=== PATIENT | male | born 1955 | race Caucasian/White ===

== ENCOUNTER 2023-12-31 06:52 | Emergency (ER) | payer BC ==
[~2023-12-31] VITALS: Ht 180.3 cm; Wt 89.9 kg
[~2023-12-31 06:52] MED LIST: ALLOPURINOL100 MG PO; GLIPIZIDE ER10 MG PO; LISINOPRIL40 MG PO
[2023-12-31] MEDS ORDERED: AMLODIPINE BESYL5 MG PO (07:08)
[2023-12-31 08:06] LABS: BASOPHILS 0.1 % (0-2); EOSINOPHILS 0.3 % (0-6); HEMATOCRIT 35.6 % (35.0-50.0); HEMOGLOBIN 12.2 g/dL (12.0-18.0); LYMPHOCYTES 13.8 % (24-44); MCH 35.5 (27-36); MCHC 34.2 g/dl (30-36); MCV 103.8 fl (81-99); NEUTROPHILS 74.8 % (39-80); PLATELET COUNT 93 K/uL (140-440); RBC 3.43 M/ul (4.3-5.7); RDW 14.1 (10.5-15.0)
[2023-12-31 08:16] LABS: INR 1.26 (0.80-1.30); PROTIME 15.4 Sec (11.2-14.2)
[2023-12-31 08:20] LABS: ALBUMIN 2.9 g/dL (3.4-5.0); ALBUMIN/GLOBULIN RATIO 0.64 (1.1-2.4); ANION GAP 13.5 (7-21); BILIRUBIN, TOTAL 1.9 ng/dL (0.2-1.0); BUN/CREATININE RATIO 9.67 (6.0-28.6); CALCIUM 8.6 mg/dL (8.5-10.1); CREATININE, SERUM 0.93 mg/dL (0.70-1.30); POTASSIUM 4.5 mmol/L (3.5-5.1); PROTEIN, TOTAL 7.4 g/dL (6.4-8.2)
[2023-12-31 09:44] VITALS: BP 166/70
== END 2023-12-31 09:46 | disposition home or self-care (01) ==
LOC: ED 06:52
PROVIDERS: Emergency Medicine
DX: S22.080A Wedge compression fracture of T11-T12 vertebra, initial encounter for closed fracture (principal); I10 Essential (primary) hypertension; E11.9 Type 2 diabetes mellitus without complications; X50.0XXA Overexertion from strenuous movement or load, initial encounter; Z79.899 Other long term (current) drug therapy
CPT/HCPCS: 36415; 72070; 72100; 80053; 82140; 85025; 85610; 99283-25; G0480

== ENCOUNTER 2024-08-03 10:26 | Inpatient (IN) | payer BC, MEDICARE ==
[2024-08-03] VITALS (13 sets, daily range): BP systolic 99–154; BP diastolic 50–117
[~2024-08-03] VITALS: Ht 180.3 cm; Wt 87.3 kg
[~2024-08-03 10:26] MED LIST changes: +AMLODIPINE BESYL5 MG PO
[2024-08-03 10:43] LABS: BASOPHILS 2.4 % (0-2); EOSINOPHILS 2.5 % (0-6); HEMATOCRIT 28.9 % (35.0-50.0); LYMPHOCYTES 18.5 % (24-44); MCH 36.9 (27-36); MCHC 34.6 g/dl (30-36); MCV 106.7 fl (81-99); MONOCYTES 11.1 % (0-12); NEUTROPHILS 65.5 % (39-80); PLATELET COUNT 90 K/uL (140-440); RBC 2.71 M/ul (4.3-5.7); RDW 14.9 (10.5-15.0)
[2024-08-03] MEDS ORDERED: SODIUM CHLORIDE 0.9% 1,000 ML IV PRN (10:45)
[2024-08-03 10:48] LABS: PARTIAL THROMBOPLASTIN TIME 34.2 Sec (22.9-41.3)
[2024-08-03 10:49] LABS: INR 1.48 (0.80-1.30); PROTIME 17.1 Sec (11.2-14.2)
[2024-08-03 11:01] LABS: ACETAMINOPHEN 0 ug/mL (10-30); ALBUMIN 2.6 g/dL (3.4-5.0); ALBUMIN/GLOBULIN RATIO 0.63 (1.1-2.4); ALCOHOL, MEDICAL <3 ng/dL (<3); ALKALINE PHOSPHATASE 180 U/L (46-116); ALT (SGPT) 31 U/L (14-59); AST (SGOT) 38 U/L (15-37); BILIRUBIN, TOTAL 1.8 ng/dL (0.2-1.0); BUN/CREATININE RATIO 14.15 (6.0-28.6); CALCIUM 8.4 mg/dL (8.5-10.1); CARBON DIOXIDE 20 mmol/L (21-32); CHLORIDE 111 mmol/L (98-107); CREATININE, SERUM 1.13 mg/dL (0.70-1.30); GLOMERULAR FILTRATION RATE,EST 71 mL/min (>60); PROTEIN, TOTAL 6.7 g/dL (6.4-8.2); TSH, 3RD GENERATION 1.979 uIU/mL (0.358-3.740); UREA NITROGEN 16 mg/dL (7-18)
[2024-08-03 11:02] LABS: SALICYLATE <0.2 mg/dL (2.8-20.0)
[2024-08-03] MEDS ORDERED: LACTULOSE 20 GM/30 ML CUP PO ONE (12:15)
[2024-08-03 12:31] LABS: BILIRUBIN, URINE NEGATIVE (negative); BLOOD/HGB, URINE NEGATIVE (Negative); KETONE, URINE NEGATIVE (Negative); LEUK ESTERASE, URINE NEGATIVE (negative); NITRITE, URINE NEGATIVE (negative)
[2024-08-03 12:45] LABS: AMPHETAMINES, URINE NEGATIVE (NEGATIVE); BARBITURATES, URINE NEGATIVE (NEGATIVE); BENZODIAZEPINE, URINE NEGATIVE (NEGATIVE); BUPRENORPHINE, URINE NEGATIVE (NEGATIVE); CANNABINOID, URINE NEGATIVE (NEGATIVE); COCAINE, URINE NEGATIVE (NEGATIVE); ECSTASY, URINE NEGATIVE (NEGATIVE); FENTANYL, URINE NEGATIVE (NEGATIVE); METHADONE, URINE NEGATIVE (NEGATIVE); OPIATES, URINE NEGATIVE (NEGATIVE); OXYCODONE, URINE NEGATIVE (NEGATIVE); PHENCYCLIDINE, URINE NEGATIVE (NEGATIVE)
[2024-08-03] MEDS ORDERED: ENOXAPARIN SODIUM 40 MG/0.4 ML SYR SUB-Q SCH (13:36)
[2024-08-03] MEDS ORDERED: GLUCAGON,HUMAN RECOMBINANT 1 MG/ML VIAL SUB-Q PRN (13:45)
[2024-08-03] MEDS ORDERED: LACTATED RINGER'S 1,000 ML IV SCH (13:45)
[2024-08-03] MEDS ORDERED: DEXTROSE 5% 1,000 ML IV PRN (13:45)
[2024-08-03] MEDS ORDERED: bisacodyL 10 MG SUPP PR PRN (13:45)
[2024-08-03] MEDS ORDERED: ACETAMINOPHEN 325 MG TAB PO PRN (13:45)
[2024-08-03] MEDS ORDERED: IBLOOD GLUCOSE TEST STRIP 1 EA TEST XX PRN (13:45)
[2024-08-03] MEDS ORDERED: DEXTROSE 50% 50 ML SYR IV PRN ×2 (13:45)
[2024-08-03] MEDS ORDERED: GLIPIZIDE ER5 MG PO (14:06)
--- NOTE | 2024-08-03 14:25 | NUR ---
PT ARRIVES TO UNIT VIA STRETCHER TRANSPORTED BY THIS RN - DAUGHTER AND WITH. PT ORIENTED TO SELF ONLY, PLEASENT AND REDIRECTABLE AT THIS TIME. ADMISSION ASSESSMENT COMPLETE WITH HELP OF HX FROM DAUGHTER. LR BOLUS STARTED. CIWA ASSESMENT COMPLETE, WILL CONTINUE TO MONITOR. BED ALARM ON AND RN AT BEDSIDE.
--- NOTE | 2024-08-03 15:00 | NUR ---
Pt unable to answer questions. Spoke with pts daughter. Pt lives with his . For the past few days he has had some confusion, putting his clothing on inside out. Refusing to go to the hospital. Pt does not use any DME. They have 3 levels in there home and pt mostly usess one floor only. They ave 3 steps into the house. Pt is able to get in and out without problem. 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 They do not have financial issues. Pt drinking 1 1/2 cases of beer daily. Most like last drink was on 08/02. Pt is angry on admission with family. Will see him tomorrow.
--- NOTE | 2024-08-03 15:30 | NUR ---
MD AT BEDSIDE SPEAKING WITH FAMILY AND PT. ALL QUESTIONS ANSWERED AND CURRENT POC DISCUSSED. PT CONTINUES TO NEED REDIRECTION AND VERBAL CUEING TO STAY IN BED. URINAL PROVIDED TO VOID, 450ML OF BILIOUS URINE. RN REMAINS AT BEDSIDE, BED ALARM ON.
[2024-08-03] MEDS ORDERED: LORazepam 2 MG/ML VIAL IV/IM PRN (16:15)
[2024-08-03] MEDS ORDERED: THIAMINE HCL 100 MG,FOLIC ACID 1 MG,MULTIVITAMINS 10 ML in SODIUM CHLORIDE 0.9% 1,000 ML IV ONE (16:15)
[2024-08-03] MEDS ORDERED: LORazepam 1 MG TAB PO PRN (16:15)
[2024-08-03] MEDS ORDERED: GABAPENTIN 300 MG CAP PO SCH (16:38)
--- NOTE | 2024-08-03 16:40 | NUR ---
PRN ATIVAN ADMINSTERED FOR ELEVATED CIWA SCORE - DELAY R/T ORDER AND PHARMACY VERIFICATION. PT RESTING IN BED, REDIRECTABLE AT THIS TIME BUT STILL DEMONSTRATING DISORIENTATION, TREMORS AND RESTLESNESS. VS STABLE.
[2024-08-03] MEDS ORDERED: INSULIN LISPRO 100 UNIT/ML ML SUB-Q SCH (17:00)
[2024-08-03] MEDS ORDERED: IBLOOD GLUCOSE TEST STRIP 1 EA TEST VI SCH (17:00)
--- NOTE | 2024-08-03 17:20 | NUR ---
PT RESTING IN BED QUIETLY WITH EYES CLOSED AFTER PRN ATIVAN DOSE OF 1MG, RR EVEN AND UNLABORED. VS STABLE ON SCREEN. BED ALARM ON AND DIRECT SITE OF PRIMARY RN.
--- NOTE | 2024-08-03 18:09 | NUR ---
1MG ATIVAN DOSE ADMINISTERED FOR CIWA SCORE OF 9 - PT NOTED TO BE REACHING AND WAVING THINGS OFF OF HIM NOT THERE - SPEECH INCOMPREHENSIBLE/INAPPROPRIATE TO QUESTIONS ASKED. RESTLES AND FIGITY IN BED. BED ALARM ON AND RN AT BEDSIDE. VS STABLE ON MONITOR.
--- NOTE | 2024-08-03 18:14 | NUR ---
medications reconciled
--- NOTE | 2024-08-03 19:09 | NUR ---
PT INCONTINANT OF STOOL, SOFT BROWN SMALL AMOUNT. BED LINEN CHANGED, ATTENDS PLACED AND BARRIER CREAM APPLIED TO RECTUM AREA. PT TOLERATED MOVEMENT WITHOUT AGGITATION BUT LIMITED ABILITY TO FOLLOW DIRECTIONS.
--- NOTE | 2024-08-03 19:18 | NUR ---
PT ENDORSING HALLUCINATIONS OF COINS SPINNING IN ROOM - CIWA SCORE 14, 2MG ATIVAN ADMINSITERED IV. BED ALARM ON, SITTER AT BEDSIDE.
--- NOTE | 2024-08-03 20:06 | NUR ---
RECEIVED REPORT FROM DAY SHIFT RN. PATIENT IS RESTING IN BED WITH EYES CLSOED, RR 14. NAD NOTED. SITTER IS IN THE ROOM. PATIENT IS ON A 1 ON 1.
[2024-08-03] MEDS ORDERED: LACTULOSE 20 GM/30 ML CUP PO SCH (21:00)
[2024-08-03] MEDS ORDERED: MELATONIN 3 MG TAB PO PRN (21:00)
--- NOTE | 2024-08-03 21:10 | NUR ---
VITALS OBTAINED. BS CHECKED AND IS WNL. THIS RN ATTEMPTED TO GIVE LACTULOSE. PATIENT ABLE TO SWALLOW HALF. PATIENT IS DROWSY AND AWAKENS BRIEFLY. PATIENT IS ONLY ORIENTED TO SELF. PATIENT REPOSITIONED IN BED ASSESMENT COMPLETED. IV INFUSING PER ORDER. WHEELABRATOR OPERATOR PRESENT IN ROOM FOR PATIENT SAFETY.
--- NOTE | 2024-08-03 22:42 | NUR ---
PATIENT REPOSITIONED IN BED. PATIENT IS RESTING IN BED WITH EYES CLOSED, RR 14. BED ALARM ON FOR SAFETY. IV INFUSING PER ORDER
--- NOTE | 2024-08-03 23:02 | NUR ---
PATIENT REPOSITIONED IN BED. NAD NOTED. CALL LIGHT IN REACH. PATIENT BRIEFLY OPENED EYES. PATIENT IS DROWSY AT THIS TIME. CALL LIGHT IN REACH. BED ALARM ON FOR SAFETY.
[2024-08-04] VITALS (16 sets, daily range): BP systolic 102–144; BP diastolic 56–84
--- NOTE | 2024-08-04 00:10 | NUR ---
PATIENT AWAKE AND ABLE TO ASK FOR A DRINK OF WATER. PATIENT PROVIDED SIPS OF WATER. PATIENT ABLE TO FINISH DOSE OF LACTULOSE. PATIENT DENIES ANY PAIN OR SOB. PATIENT DENIES ANY NEEDS. CALL LIGHT IN REACH. BED ALARM ON FOR SAFETY. IV INFUSING PER ORDER. BED ALARM ON FOR SAFETY
--- NOTE | 2024-08-04 00:59 | NUR ---
PATIENT ASSISTED TO THE [facility] [place] 2[place]FER. PATIENT UNABLE TO VOID. PATIENT IS BACK IN BED RESTING. PATIENT ONLY ORIENTED TO SELF. PATIENT DENIES ANY PAIN, NAUSEA OR SOB. PATIENT IS ON RA. IV INFUSING PER ORDER. BED ALARM ON FOR SAFETY. CIWA 7 AT THIS TIME. PATIENT IS RESTLESS BUT REDIRECTABLE.
--- NOTE | 2024-08-04 01:45 | NUR ---
PATIENT IS RESTING IN BED WITH EYES CLOSED, RR 11. NAD NOTED. CALL LIGHT IN REACH. BED ALARM ON FOR SAFETY.
--- NOTE | 2024-08-04 02:27 | NUR ---
PATIENT IS RESTING IN BED WITH EYES CLOSED, RR 13. NAD NOTED. CALL LIGHT IN REACH. BED ALARM ON FOR SAFETY.
--- NOTE | 2024-08-04 03:19 | NUR ---
PATIENT BLADER SCANNED FOR FOR GREATER THAN 1000. PATIENT ASSISTED TO STAND AT THE BEDSIDE A 2PA. PATIENT ABLE TO VOID. PATIENT IS BACK IN BED RESTING. PATIENTS CIWA NOTED TO BE A 5, NO INTERVENTION NEEDED AT THIS TIME. PATIENT REMAINS ONLY ORIENTED TO SELF. PATIENT DENIES ANY PAIN, SOB OR NAUSEA. PATIENT DENIES ANY NEEDS. CALL LIGHT IN REACH. BED ALARM ON FOR SAFETY.
--- NOTE | 2024-08-04 04:06 | NUR ---
PATIENT IS RESTING IN BED WITH EYES CLOSED, RR 10. NAD NOTED. CALL LIGHT IN REACH. BED ALARM ON FOR SAFETY.
--- NOTE | 2024-08-04 05:29 | NUR ---
PATIENT ASSISTED TO STAND AT THE BEDSIDE A 2PA. PATIENT ABLE TO VOID. PATIENT IS BACK IN BED RESTING. PATIENT IS ONLY ORIENT TO SELF. PATIENT ABLE TO STATE HE IS IN HOSPITAL BUT NOT ABLE TO RECALL EVENT OF HOW HE GOT HERE. PATIENT REORIENTED. PATIENTS CIWA NOTED TO BE A 4. PATIENT DENIES ANY PAIN, SOB, OR NAUSEA. PATIENT PROVIDED SIPS OF WATER. PATIENT IS ON RA. PATIENT DENIES ANY NEEDS. CALL LIGHT IN REACH. BED ALARM ON FOR SAFETY. IV INFUSING PER ORDER.
[2024-08-04 05:35] LABS: BASOPHILS 0.5 % (0-2); EOSINOPHILS 3.5 % (0-6); HEMATOCRIT 25.3 % (35.0-50.0); HEMOGLOBIN 8.5 g/dL (12.0-18.0); LYMPHOCYTES 33.3 % (24-44); MCH 36.7 (27-36); MCHC 33.7 g/dl (30-36); MCV 108.7 fl (81-99); MONOCYTES 14.5 % (0-12); NEUTROPHILS 48.2 % (39-80); PLATELET COUNT 73 K/uL (140-440); RBC 2.33 M/ul (4.3-5.7); RDW 14.8 (10.5-15.0)
[2024-08-04 06:00] LABS: ALBUMIN 2.1 g/dL (3.4-5.0); ALBUMIN/GLOBULIN RATIO 0.62 (1.1-2.4); ANION GAP 15.1 (7-21); BUN/CREATININE RATIO 10.3 (6.0-28.6); CALCIUM 8.2 mg/dL (8.5-10.1); CREATININE, SERUM 0.97 mg/dL (0.70-1.30); MAGNESIUM 1.8 mg/dL (1.8-2.4); PHOSPHORUS, INORGANIC 4.1 mg/dL (2.5-4.9); POTASSIUM 4.1 mmol/L (3.5-5.1); PROTEIN, TOTAL 5.5 g/dL (6.4-8.2)
--- NOTE | 2024-08-04 06:35 | NUR ---
PATIENT IS RESTING WITH EYES CLOSED, RR 11. NAD NOTED. CALL LIGHT IN REACH. BED ALARM ON FOR SAFETY. IV INFUSING PER ORDER.
[2024-08-04] MEDS ORDERED: DEXTROSE 5% 1,000 ML IV SCH (08:15)
--- NOTE | 2024-08-04 08:32 | NUR ---
AM ASSESSMENT COMPLETE - PT RESTING IN BED AWAKE AND ORIENTED TO SELF AND PLACE. RESTLESS BUT REDIRECTABLE. CIWA SCORE 9 AT THIS TIME - PRN ATIVAN AT THIS TIME. PT SWALLOWING PO MEDS WITHOUT DIFFICULTY. FAMILY AT BEDSIDE - ALL QUESTIONS ANSWERED. BED ALARM ON AND DOOR/CURTAIN OPEN FOR SAFETY.
[2024-08-04] MEDS ORDERED: allopurinoL 100 MG TAB PO SCH (09:00)
[2024-08-04] MEDS ORDERED: lisinopriL 20 MG TAB PO SCH (09:00)
--- NOTE | 2024-08-04 09:00 | NUR ---
PT RESTING COMFORTABLE IN BED, ALERT. FAMILY AT BEDSIDE. BED ALARM ON.
--- NOTE | 2024-08-04 10:09 | NUR ---
PT NOT AVAILABLE FOR VISIT. PROVIDED PRAYER.
--- NOTE | 2024-08-04 10:30 | NUR ---
PT NOTED TO BE ATTEMPTING TO GET UP OUT OF BED - RN IN ROOM TO ASSESS. STATES HE NEEDS "TO PEE". URINAL PLACED AND PT ABLE TO VOID 400ML ORANGE URINE. CIWA NOW 10, PT ENDORSING MILD ANXIETY BUT IS RESTING CALMLY IN BED. WILL CONTINUE TO ASSESS. BED ALARM ON AND DOOR/CURTAIN OPEN FOR SAFETY.
--- NOTE | 2024-08-04 11:15 | NUR ---
PT/OT IN ROOM TO EVAL PT. PT UP TO CHAIR USING FWW, UNWITNESSED BY THIS RN. PT RESTING IN CHAIR COMFORTABLY WITH CHAIR ALARM UNDER, DOOR OPEN TO RN STATION.
--- NOTE | 2024-08-04 11:24 | NUR ---
UR CLINICAL [place] [facility] [place] G[place]ELINE KIKI BRANDI LÓPEZ PPO INPT 08/03/2024 @ 1337 ORDER MATCHES REG AUTH PENDING. WILL SEND CLINICALS, IF REQUESTED, VIA RIGHTFAX. PLAN TO DC TO HOME WHEN MEDICALLY STABLE. 08/06/2024
[2024-08-04] MEDS ORDERED: PHARMACY RENAL DOSE ADJUSTMENT 1 DOSE MISC PO SCH (12:00)
--- NOTE | 2024-08-04 12:49 | NUR ---
PT RESTING IN CHAIR WITH EYES CLOSED, RR EVEN AND UNLABORED. VS WNL ON MONITOR. CHAIR ALARM ON WITH PT IN DIRECT VIEW OF RN STATION.
[2024-08-04 13:31] LABS: ANION GAP 13.5 (7-21); BUN/CREATININE RATIO 11.34 (6.0-28.6); CALCIUM 8.2 mg/dL (8.5-10.1); CREATININE, SERUM 0.97 mg/dL (0.70-1.30); POTASSIUM 3.5 mmol/L (3.5-5.1)
--- NOTE | 2024-08-04 13:52 | NUR ---
DR. WAGGONER CALLED WITH RESULTS OF 1200 LABS AND REVIEWED-ORDER REC'D TO STOP D5 IVF AND SALINE LOCK PATIENT. NEXT LABS TO BE DRAWN IN THE AM. PT RESTING IN CHAIR AT THIS TIME AND APPEARS COMFORTABLE. PT ASKS, "WHEN CAN I TAKE THE REST OF THIS STUFF OFF?" EXPLAINED TO PATIENT THAT JUST THE IVF ARE BEING D/C AT THIS TIME, THE REST OF THE STUFF WILL HAVE TO STAY FOR THE TIME. PT EXPRESSES UNDERSTANDING.
--- NOTE | 2024-08-04 16:18 | NUR ---
PT ASSISTED UP TO BATHROOM TO HAVE BM AFTER EXITING CHAIR BY HIMSELF. PT UNSTEADY ON FEET, FOLLOWS DIRECTIONS WHEN GIVEN FWW. INC OF LARGE AMOUNG OF URINE, SOFT/LIQ LAMA STOOL NOTED. PT BACK TO CHAIR AND PROVIDED WATER TO DRINK - DENIES BEING HUNGRY AT THIS TIME. PT IMPROVING IN ORIENTATION, APPEARS MORE CLEAR IN THOUGHT PROCESS - BUT STILL REMAINS DISORIENTED TO DATE. FAMILY AT BEDSIDE. CHAIR ALARM ON AND DOOR OPEN TO RN STATION.
[2024-08-04] MEDS ORDERED: THIAMINE HCL 100 MG TAB PO SCH (17:00)
--- NOTE | 2024-08-04 17:48 | NUR ---
PT SITTING UP IN CHAIR FEEDING SELF DINNER. IMPROVED COORDINATION BUT DAUGHTER REPORTS STILL NOT AT BASELINE FUCTIONING. PT HAD ALREADY BEGUN EATING BEFORE CBG OBTAINED, 152, INSULIN HELD AT THIS TIME. PT WATCHING TV, CHAIR ALARM ON AND DOOR OPEN TO RN STATION.
--- NOTE | 2024-08-04 19:09 | NUR ---
PT RESTING IN CHAIR RECLINED, EYES CLOSED, RR EVEN AND UNLABORED. CHAIR ALARM ON, DOOR OPEN TO RN STATION.
--- NOTE | 2024-08-04 19:50 | NUR ---
REPORT RECIEVED FROM DAY SHIFT RN. PATIENT RESTING IN CHAIR WITH EYES CLOSED. RESPIRATIONS EVEN AND UNLABORED. CALL LIGHT IN REACH.
--- NOTE | 2024-08-04 20:30 | NUR ---
PATIENT RESTING IN CHAIR. SCHEDULED MEDICATION ADMINSITERED. BS OBTAINED AND RECORDED. PATIENT A&Ox3. PATIENT ORIENTED TO NAME, , AND YEAR BUT NOT LOCATION. WHEN ASKED, PATIENT STATED HE WAS IN [place]. PATIENT DENIES FURTHER NEEDS AT THIS TIME. CALL LIGHT IN REACH.
--- NOTE | 2024-08-04 21:00 | NUR ---
PATIENT TRANSFERRED FROM CCU TO MED-SURG FLOOR BY THIS RN AND LITIGATION SPECIALISTJhoan KUMAR. PATIENT RESTING IN CHAIR. PATIENT ORIENTED TO NEW ROOM AND CALL LIGHT. PATIENT VERBILIZES UNDERSTANDING. PATIENT HAS NO FURTHER NEEDS AT THIS TIME. CALL LIGHT IN REACH.
--- NOTE | 2024-08-04 23:27 | NUR ---
PATIENT RESTING IN CHAIR. CHAIR ALARM IN PLACE. PATIENT DENIES NEEDS. CALL LIGHT IN REACH.
[2024-08-05] VITALS (9 sets, daily range): BP systolic 119–153; BP diastolic 53–70
--- NOTE | 2024-08-05 02:20 | NUR ---
PATIENT UP TO THE BATHROOM WITH 2PA STANDING BY. PATIENT HAD BM AND VOIDED APPROXIMATELY 50ML CONCENTRATED YELLOW URINE. PATIENT'S BLADDER SCANNED WITH 835ML IN. PATIENT STOOD UP ATTEMPTED TO VOID MORE BUT FAILED. PATIENT IS BACK IN BED. ALARM ON FOR SAFETY. PRIMARY RN WAS WITH PATIENT AND THIS SHOULDER PAD MOLDER.
--- NOTE | 2024-08-05 03:50 | NUR ---
BED ALARM SOUNDING. PATIENT UP TO BATHROOM TO VOID YELLOW URINE. PATIENT BACK TO BED. BED ALARM ON. NO FURTHER NEEDS. CALL LIGHT IN REACH.
[2024-08-05 06:01] LABS: BASOPHILS 0.3 % (0-2); EOSINOPHILS 2.7 % (0-6); HEMATOCRIT 24.2 % (35.0-50.0); HEMOGLOBIN 8.5 g/dL (12.0-18.0); LYMPHOCYTES 25.5 % (24-44); MCH 36.9 (27-36); MCV 105.4 fl (81-99); MONOCYTES 15.1 % (0-12); NEUTROPHILS 56.4 % (39-80); PLATELET COUNT 72 K/uL (140-440); RDW 14.3 (10.5-15.0)
[2024-08-05 06:17] LABS: ALBUMIN 2.2 g/dL (3.4-5.0); ALBUMIN/GLOBULIN RATIO 0.63 (1.1-2.4); ANION GAP 13.4 (7-21); BILIRUBIN, TOTAL 2.3 ng/dL (0.2-1.0); BUN/CREATININE RATIO 8.91 (6.0-28.6); CALCIUM 8.2 mg/dL (8.5-10.1); CREATININE, SERUM 1.01 mg/dL (0.70-1.30); POTASSIUM 3.4 mmol/L (3.5-5.1); PROTEIN, TOTAL 5.7 g/dL (6.4-8.2)
--- NOTE | 2024-08-05 07:05 | NUR ---
REPORT RECEIVED FROM JAYLIN RIVERA. PT RESTING WITH EYES CLOSED IN BED, RR EVEN AND UNLABORED, CALL LIGHT IN REACH.
[2024-08-05] MEDS ORDERED: POTASSIUM CHLORIDE 10 MEQ TABCR PO ONE (07:45)
--- NOTE | 2024-08-05 08:00 | NUR ---
MORNING MEDICATIONS ADMINISTERED, SEE MAR. FRESH ICE WATER PROVIDED. PT HAS NO OTHER REQUESTS AT THIS TIME, BED IN LOWEST POSITION, BED ALARM ON, CALL LIGHT IN REACH.
--- NOTE | 2024-08-05 08:41 | NUR ---
MEDICATION ADMINISTERED, SEE MAR. PT IS SITTING UP IN BED EATING BREAKFAST, DAUGHTER VISITING AT THIS TIME. CALL LIGHT IN REACH, BED ALARM ON, NO OTHER NEEDS NOTED.
--- NOTE | 2024-08-05 09:16 | NUR ---
PATIENT SITTING UP IN BED AT THIS TIME. VITALS DONE BY RN. I&O'S CHARTED. BED ALARM ON. CALL LIGHT IN REACH. NO FURTHER NEEDS AT THIS TIME.
--- NOTE | 2024-08-05 09:50 | NUR ---
CASE MANAGEMENT HEMA PRESENT AT THIS TIME SPEAKING WITH PT.
--- NOTE | 2024-08-05 10:00 | NUR ---
Spoke with Daniel. He is resting in bed. Somewhat of a rambling converstation. 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 Pt plans on "cold turkey" to stop drinking. We discussed the difficulty of stopping alcohol and the hardship on the family watching him decline. Pt stating he really wants to quit and feels he's reached a point where he can no longer continue to drink. He states concern for his 3 yo grandson and wanting to be around for him.
[2024-08-05 10:08] LABS: IRON BINDING CAPACITY TOTAL 275 ug/dL (240-450); IRON,SERUM OR PLASMA 97 ug/dL (45-182); TRANSFERRIN SATURATION 35 %sat (20-50)
--- NOTE | 2024-08-05 10:42 | NUR ---
MEDICATIONS ADMINISTERED, SEE OCT. ASSESSMENT COMPLETE. PT AMBULATES WITH 2PA TO RESTROOM. INCONTINENT BOWEL IN PULL UP, HAS MORE STOOL IN THE TOILET. REDNESS NOTED TO GLUTEAL CLEFT, DEDE-CARE AND BARRIER CREAM APPLIED AT THIS TIME. AZAEL ATKINS ASSISTING THIS RN WITH TRANSFERS AND CARES. PT ASSISTED BACK TO BED PER HIS REQUEST. NO OTHER NEEDS AT THIS TIME, BED ALARM ON, BED IN LOWEST POSITION, CALL LIGHT IN REACH.
--- NOTE | 2024-08-05 10:47 | NUR ---
VISITED DURING SPIRITUAL CARE ROUNDS. PT APPEARED TO BE SLEEPING. DID NOT DISTURB. PROVIDED PRAYER.
--- NOTE | 2024-08-05 11:29 | NUR ---
PT RESTING IN BED WITH EYES CLOSED, MOUTH OPEN, RR EVEN AND UNLABORED. BED ALARM ON, BED IN LOWEST POSITION, CALL LIGHT IN REACH.
--- NOTE | 2024-08-05 12:18 | NUR ---
PT GETS OUT OF BED WITHOUT CALLING, BED ALARM GOES OFF. PT AMBULATES FROM BED TO BATHROOM AND HAS ONE EPISODE OF INCONT LOOSE STOOL AND A SECOND EPISODE OF LOOSE STOOL IN THE TOILET. PT ASSISTED TO CLEAN UP, BARRIER CREAM APPLIED FOR REDNESS. PT AMBULATES TO RECLINER, SET UP FOR LUNCH. CALL LIGHT IN REACH, CHAIR ALARM ON.
--- NOTE | 2024-08-05 13:53 | NUR ---
PT HAS TWO VISITORS IN WITH HIM AT THIS TIME. GELA FROM PHYSICAL THERAPY IS JUST LEAVING AT THIS TIME.
--- NOTE | 2024-08-05 14:04 | EKG ---
[facility] [address] [place] [address] Signed Normal sinus rhythm Prolonged QT Abnormal ECG No previous ECGs available Confirmed by Sally Waggoner MD ([id number]) on 08/05/2024 2:03:52 PM Electronically Signed By: SALLY WAGGONER DO 08/05/24 1404 PATIENT NAME: JCARLOS AMANDA Electrocardiogram DATE OF : 55 PHYSICIAN: SALLY WAGGONER DO REPORT #: [id number] REPORT IS CONFIDENTIAL AND NOT TO BE RELEASED WITHOUT AUTHORIZATION
--- NOTE | 2024-08-05 14:38 | NUR ---
PATIENT SITTING UP IN BED, VISITOR IN ROOM. VITALS AND I&O'S DONE AND CHARTED. RN IN ROOM AT THIS TIME. CALL LIGHT IN REACH. BED ALARM ON. NO FURTHER NEEDS AT THIS TIME.
--- NOTE | 2024-08-05 14:38 | NUR ---
SECOND ASSESSMENT COMPLETE. PT CIWA CURRENTLY A 3. PT RESTING IN BED, VISITOR PRESENT IN ROOM AT THIS TIME. PT HAS NO REQUESTS OR COMPLAINTS. CALL LIGHT IN REACH. BED IN LOWEST POSITION, BED ALARM ON.
--- NOTE | 2024-08-05 15:48 | NUR ---
MEDICATION ADMINISTERED, SEE MAR.
--- NOTE | 2024-08-05 17:47 | NUR ---
MEDICATION ADMINISTERED, SEE MAR. PT SITTING UP IN BED EATING HIS SUPPER AND WATCHING TELEVISION. HE HAS NO COMPLAINTS OR REQUESTS AT THIS TIME. CALL LIGHT IN REACH, BED IN LOWEST POSITION, BED ALARM ON.
--- NOTE | 2024-08-05 18:09 | NUR ---
PATIENT SITTING UP IN BED WATCHING TV. VITALS AND I&O'S DONE AND CHARTED. BED ALARM ON. CALL LIGHT IN REACH. NO FURTHER NEEDS AT THIS TIME.
--- NOTE | 2024-08-05 19:26 | NUR ---
REPORT RECIEVED FROM DAY SHIFT RN. PATIENT RESTING IN BED WITH EYES CLOSED. RESPIRATIONS EVEN AND UNLABORED. CALL LIGHT IN REACH.
--- NOTE | 2024-08-05 20:07 | NUR ---
BED ALARM SOUNDING. PATIENT UP TO BATHROOM WITH MINIMLA SBA TO VOID. PATIENT BACK TO BED. VS AND I&Os OBTAINED AND RECORDED. PATIENT A&Ox3, NOT ORIENTED TO DATE OR YEAR. BS OBTAINED AND RECORDED. SCHEDULED MEDICATION NOT GIVEN PER MD VERBAL ORDER. IVs FLUSH WNL. PATIENT DENIES FURTHER NEEDS AT THIS TIME. BED ALARM ON. ASSESSMENT COMPLETE. CALL LIGHT IN REACH.
--- NOTE | 2024-08-05 20:43 | NUR ---
BED ALARM SOUNDED NEAR 2030, PT TRYING TO CLIMB OUT OF BED, SAID HE NEEDED TO USE BATHROOM. OUT OF BED INDEPENDENTLY, HOWEVER, NEEDED CUEING TO USE WALKER, HAD SMEAR OF STOOL IN ATTENDS, PERICARE COMPLETED BY THIS RN, CLEAN ATTENDS PLACED. NOTED BLOOD ON HANDS, FINGERS. PT REQUIRED CUEING TO WASH HANDS, HE SAID HE DIDN'T KNOW WHERE IT WAS COMING FROM. NOTED DRIED BLOOD ON SIDE MOUTH, IN CHANEY. HAD PT RINSE MOUTH SEVERAL TIMES BRIGHT RED BLOOD OUT. NOTED POOR DENTITION, PRIMARY RN MIGUEL STATES THAT PT "GUMS" BLEED. PT BACK TO BED, CLEAN LINEN PROVIDED, LIGHTS OUT WELL BED ALARM PLACED. ENCOURAGED PT TO USE CALL LIGHT.
--- NOTE | 2024-08-05 23:04 | NUR ---
PATIENT RESTING IN BED ON BACK WITH EYES CLOSED. RESPIRATIONS EVEN AND UNLABORED. CALL LIGHT IN REACH.
[2024-08-06] VITALS (7 sets, daily range): BP systolic 113–131; BP diastolic 45–65
--- NOTE | 2024-08-06 01:52 | NUR ---
PATIENT RESTING IN BED ON BACK WITH EYES CLOSED. RESPIRATIONS EVEN AND UNLABORED. CALL LIGHT IN REACH.
--- NOTE | 2024-08-06 04:13 | NUR ---
PATIENT RESTING IN BED ON BACK WITH EYES CLOSED. RESPIRATONS EVEN AND UNLABORED. CALL LIGHT IN REACH.
[2024-08-06 06:09] LABS: BASOPHILS 0.3 % (0-2); EOSINOPHILS 2.6 % (0-6); HEMATOCRIT 24.2 % (35.0-50.0); HEMOGLOBIN 8.3 g/dL (12.0-18.0); LYMPHOCYTES 27.2 % (24-44); MCH 36.9 (27-36); MCHC 34.4 g/dl (30-36); MCV 107.3 fl (81-99); MONOCYTES 16.7 % (0-12); NEUTROPHILS 53.2 % (39-80); PLATELET COUNT 68 K/uL (140-440); RBC 2.25 M/ul (4.3-5.7); RDW 14.8 (10.5-15.0)
--- NOTE | 2024-08-06 06:14 | NUR ---
PATIENT RESTING IN BED. PATIENT UP TO BATHROOM WITH 1P SBA AND FWW TO VOID INTO URINAL. PATIENT USED URINAL MOSTLY INDEPENDENTLY. PATIENT BACK TO BED. VS AND I&Os OBTAINED AND RECORDED. SCANT AMOUNT OF BLOOD NOTED ON PATIENTS MOUTH. THIS RN CHECKED PATIENTS MOUTH AND WHEN MENTIONING THE BLOOD PATIENT STATED "YEAH THAT HAPPENS SOMETIMES". THIS RN ASKED PATIENT WHY AND HE SAID THAT HE DIDNT KNOW. NO SORES SEEN BY THIS RN. BLOOD APPEARS TO BE COMING FROM PATIENTS GUMS, BUT NOT FULLY SURE. ANDROID DEVELOPER AWARE. PATIENT RESTING IN BED. BED ALARM. CALL LIGHT IN REACH.
[2024-08-06 06:24] LABS: ANION GAP 12.8 (7-21); POTASSIUM 3.8 mmol/L (3.5-5.1)
[2024-08-06 06:31] LABS: BUN/CREATININE RATIO 8.41 (6.0-28.6); CREATININE, SERUM 1.07 mg/dL (0.70-1.30)
--- NOTE | 2024-08-06 07:30 | NUR ---
REPORT RECEIVED FROM FINANCIAL DEVELOPER RN. PATIENT RESTING IN BED WITH EYES CLOSED. RESPIRATIONS EVEN AND UNLABORED. CALL LIGHT WITHIN REACH, BED ALARM ON.
--- NOTE | 2024-08-06 08:30 | NUR ---
PATIENT RESTING IN BED WITH BREASKFAST. NO NEEDS AT THIS TIME. CALL LIGHT WITHIN REACH. BED ALARM ON.
[2024-08-06] MEDS ORDERED: LACTULOSE 20 GM/30 ML CUP PO SCH (09:00)
--- NOTE | 2024-08-06 09:13 | NUR ---
PATIENT RESTING IN BED WATCHING TV. LUNGS CTA DIM IN THE BASES. BOWEL TONES ACTIVE X 4 QUADRANTS. HEART TONES SOUND REGUALR. PATIENT DENIES ANY PAIN OR DISCOMFORT. PATIENT IS ALERT AND ORIENTED TO PERSON, PLACE, LOCATION BUT NO DATE. HE IS AWARE OF THE MONTH. CIWA COMPLETED WITH A SCORE OF 4. AM MEDICATIONS ADMINSTERED. NOTIFIED OF PATIENT GUMS BLEEDING IN MORNING MEETING. PATIENT WAS ABLE TO BRUSH TEETH THIS AM WITH PRODUCT TRAINER STAFF. PATIENT REPORTS HIS MOUTH ALWAYS BLEEDS A LITTLE. REPORTS THIS CURRENT BLEEDING IS "NOTHING OUT OF THE ORDINARY." RN LOOKED IN PATIENT MOUTH. NO NOTED ACTIVE BLEEDING SORES OR ULCERS NOTED. NO FURTHER NEEDS CALL LIGHT WITHIN REACH. BED ALARM IN PLACE.
--- NOTE | 2024-08-06 10:00 | NUR ---
Spoke with Daniel and his Bianca. Discussed pts POLST form as the last time I saw him in the ER, he wanted to complete. Per family pt does not want to cont. treatment if he returns home and starts drinking again. I reviewed with pt if he want wants CPR or Intubation. Pt declines. Pt states he would plan to just remain at home. I returned with a POLST form and pt then talks about CPR, but changes his mind. Pt would like to return to the hospital for selective treatment only. Discussed with pt, Dr. Toro visit with him.POLST form completed and I notified Dr. Toro form was completed and signed by pt, he will follow up with a review with pt and .
--- NOTE | 2024-08-06 10:07 | NUR ---
Upon entering Mr. Astudillo room I find him upright in his bedside chair, his and daughter leslie are in the room with him at this time. I explain the IMM letter to Mr. Crowell who verbalizes that he agrees with his discharge plan to home when medically ready, and he shares that he wants to go home. Mr. Crowell signs the letter without further questions and a signed copy of the letter is returned to Mr Crowell. His and daughter remain in the room during this interaction. Mr. Crowell expresses no needs or requests at this time.
--- NOTE | 2024-08-06 10:45 | NUR ---
ROUNDING ON PATIENT. RESTING IN BED. DENIES ANY NEEDS. CALL LIGHT WITHIN REACH. BED ALARM ON.
--- NOTE | 2024-08-06 12:32 | NUR ---
UR CONCURRENT REVIEW: [facility] [place] LIVER DISEASE GUIDELINE, VARIANCE FOR GL DAY 2 ENTERED [facility] PPO INPT 08/03/2024 @ 5169 ORDER MATCHES REG AUTH PENDING. WILL SEND CLINICALS, IF REQUESTED, VIA RIGHTFAX. PLAN TO DC TO HOME WHEN MEDICALLY STABLE. 08/09/2024
--- NOTE | 2024-08-06 12:32 | NUR ---
PATIENT SITTING IN RECLINER WATCHING TV. PATIENT WITH NO NEEDS AT THIS TIME. CALL LIGHT WITHIN REACH. CHAIR ALARM IN PLACE.
--- NOTE | 2024-08-06 14:00 | NUR ---
PATIENT RESTING IN RECLINER. DENIES ANY NEEDS AT THIS TIME. FAMILY AT BEDSIDE. CHAIR ALARM IN PLACE. CALL LIGHT WITHIN REACH.
--- NOTE | 2024-08-06 14:22 | NUR ---
VISITED DURING SPIRITUAL CARE ROUNDS. PT APPEARED TO BE SLEEPING. DID NOT DISTURB. PROVIDED PRAYER.
--- NOTE | 2024-08-06 15:10 | NUR ---
RN ROUNDING ON PATIENT. SITTING IN RECLINER. DENIES ANY NEEDS. CHAIR ALARM IN PLACE. FAMILY AT BEDSIDE. CALL LIGHT WITHIN REACH.
--- NOTE | 2024-08-06 16:47 | NUR ---
PATIENT RESTING IN BED WITH FAMILY AT BEDSIDE. FAMILY BROUGHT PATIENT DINNER TONIGHT. PATIENT DENIES ANY NEEDS AT THIS TIME. MANAGER BEVERAGE STAFF OBTAINED BLOOD SUGAR. NO FURTHER NEEDS NOTED. CALL LIGHT WITHIN REACH. BED ALARM ON.
--- NOTE | 2024-08-06 17:15 | NUR ---
PATIENT RESTING IN BED WATCHING TV. DENIES ANY PAIN OR DISCOMFORT. DENIES ANY SIGNS/SYMPTOMS OF ALCOHOL WITHDRAWL. NOTED THAT PATIENT HAS NOT HAD A BM THIS SHIFT. PATIENT REPORTS TO STAFF THAT HE HAS HAD A BM, HOWEVER NO STAFF RECALL PATIENT HAVING A BM. CALL LIGHT WITHIN REACH. BED ALARM ON.
--- NOTE | 2024-08-06 18:33 | NUR ---
NOTIFIED OF NO BM AT THIS TIME IN THE SHIFT.
[2024-08-06] MEDS ORDERED: LACTULOSE 20 GM/30 ML CUP PO ONE (18:45)
--- NOTE | 2024-08-06 19:48 | NUR ---
REPORT RECIEVED FROM DAY SHIFT RN. PATIENT RESTING IN BED. BED ALARM ON. DENIES NEEDS. CALL LIGHT IN REACH.
--- NOTE | 2024-08-06 19:56 | NUR ---
WAREHOUSE MANAGER OBTAINED VITALS AND I&O. PT STATES NO NEEDS AT THIS TIME. CALL LIGHT WITHIN REACH AND BED ALARM ON.
--- NOTE | 2024-08-06 21:46 | NUR ---
PATIENT RESTING IN BED. SCHEDULED MEDICATION ADMINISTERED. PATIENT A&O x4. PATIENT ANSWERING QUESTIONS APPROPRIATELY. SCHEDULED MEDICATION ADMINISTERED. IVs FLUSH WNL. PATIENT HAS NO FURTHER NEEDS AT THIS TIME. CALL LIGHT IN REACH.
--- NOTE | 2024-08-06 23:20 | NUR ---
PATIENT RESTING IN BED. DENIES NEEDS AT THIS TIME. RESRPIRATIONS EVEN AND UNLABORED. CALL LIGHT IN REACH.
--- NOTE | 2024-08-06 23:32 | NUR ---
BED ALARM ANSWERED. PT SITTING AT EDGE OF BED STATING THE NEED TO USE THE BATHROOM. ACCOUNTANT TAX 1PA WITH FWW TO BATHROOM. PT VOIDED AND ASSISTED BACK TO BED. OUTPUT MEASURED. PT STATES NO FURTHER NEEDS AT THIS TIME. PT REMINDED TO USE CALL LIGHT WHEN HE NEEDED TO GET UP. PT CALL LIGHT WITHIN REACH AND BED ALARM ON.
--- NOTE | 2024-08-07 02:11 | NUR ---
PATIENT RESTING IN BED. DENIES NEEDS AT THIS TIME. RR EVEN AND UNLABORED. CALL LIGHT IN REACH.
[2024-08-07 03:50] VITALS: BP 130/64
[2024-08-07 03:52] VITALS: BP 130/64
--- NOTE | 2024-08-07 03:58 | NUR ---
PATIENT RESTING IN BED AWAKE WITH HIS HAT ON. PATIENT STATES "NEVER LEAVE THE ROOM WITHOUT YOUR HAT". VS AND I&Os OBTAINED AND RECORDED. PATIENT A&O x4. THIS RN GAVE PATIENT WASH CLOTH WITH SOAP AND WATER TO CLEAN HANDS. PATIENT CLEANED HANDS INDEPENDENTLY. PATIENT STATES THEY FEEL BETTER. PATIENT DENYING CLEAN GOWN. THIS RN EDUCATED TO CALL IF HE CHANGES HIS MIND. PATIENT HAS NO FURTHER NEEDS. BED ALARM ON. CALL LIGHT IN REACH.
[2024-08-07 05:41] LABS: BASOPHILS 0.4 % (0-2); EOSINOPHILS 3.4 % (0-6); HEMATOCRIT 25.5 % (35.0-50.0); HEMOGLOBIN 8.9 g/dL (12.0-18.0); MCHC 34.9 g/dl (30-36); MONOCYTES 16.3 % (0-12); NEUTROPHILS 57.9 % (39-80); PLATELET COUNT 87 K/uL (140-440); RBC 2.41 M/ul (4.3-5.7); RDW 14.4 (10.5-15.0)
[2024-08-07 05:54] LABS: ALBUMIN 2.4 g/dL (3.4-5.0); ALBUMIN/GLOBULIN RATIO 0.65 (1.1-2.4); ANION GAP 13.6 (7-21); BILIRUBIN, TOTAL 1.4 ng/dL (0.2-1.0); BUN/CREATININE RATIO 9.52 (6.0-28.6); CREATININE, SERUM 1.05 mg/dL (0.70-1.30); MAGNESIUM 1.9 mg/dL (1.8-2.4); POTASSIUM 3.6 mmol/L (3.5-5.1); PROTEIN, TOTAL 6.1 g/dL (6.4-8.2)
--- NOTE | 2024-08-07 07:31 | NUR ---
REPORT RECEIVED FROM CONSTITUTIONAL LAW PROFESSOR RN. PATIENT RESTING IN BED WITH EYES CLOSED. RESPIRATIONS EVEN AND UNLABORED. CALL LIGHT WITHIN REACH.
[2024-08-07 08:08] VITALS: BP 127/65
[2024-08-07 08:09] VITALS: BP 127/65
--- NOTE | 2024-08-07 08:14 | NUR ---
PATIENT RESTING IN BED READING A MAGAZINE. DENIES ANY HEADACHE, NAUSEA OR PAIN. CIWA SCORE OF O AT THIS TIME. PATIENT IS ALERT AND ORIENTED X 4 THIS MORNING. HE IS ABLE TO RECALL WHAT HIS AM MEDICATIONS ARE FOR APART FROM THE NEW MEDICATIONS. EDUCATIONS PROVIDED ON NEW MEDICATIONS. LUNGS CTA, HEART TONES REGUALR. BOWEL TONES ACTIVE X4. PATIENT DOES NOT WISH TO EAT BREAKFAST THIS AM. " IN NEVER EAT BREAKFAST." FRESH ICE WATER GIVEN. VSS. IV SITES WNL. CALL LIGHT WITHIN REACH, BED ALARM ON.
--- NOTE | 2024-08-07 09:15 | NUR ---
Spoke with pt and . Pt slightly confused this morning. denies concern and feels they are ok to go home as he is near his baseline. They have walker at home he can use. They would like PT and Dr. Toro notified. denies any other needs and they will go home later after pt works with PT again. Daughter requesting additional education for mom for safe walking with pt. PT notified.
[2024-08-07 09:23] VITALS: BP 121/63
--- NOTE | 2024-08-07 09:41 | NUR ---
IN TO ROUND ON PATIENT. RESTING IN BED WATCHING TV. DENIES ANY NEEDS AT THIS TIME. PATIENT IS EAGER TO DISCHARGE FROM THE HOSPITAL TODAY. CALL LIGHT WITHIN REACH, BED ALARM ON.
--- NOTE | 2024-08-07 10:33 | NUR ---
PATIENT RESTING IN RECLINER. REPORTS HE WENT FOR A WALK WITH PT. PATIENT CONTINUES TO REMAIN ALERT AND ORIENTED X4. DENIES ANY NEEDS AT THIS TIME CALL LIGHT WITHIN REACH.
[2024-08-07] MEDS ORDERED: LACTULOSE20 GM/30 M PO (10:59)
--- NOTE | 2024-08-07 11:34 | NUR ---
VISITED DURING SPIRITUAL CARE ROUNDS. PT SOMEWHAT CONFUSED BUT ORIENTED. STATED DESIRE TO GO HOME, WONDERED WHEN HE WOUDL GET TO GO HOME. FAMILY DEVELOPMENT EXTENSION SPECIALIST PROVIDED SUPPORTIVE PRESENCE, HOSPITALITY, PRAYER, ANTICIPATORY GUIDANCE. PT EXPRESSED APPRECIATION.
--- NOTE | 2024-08-07 12:58 | NUR ---
PATIENT DISCHARGED WITH . IV SITES REMOVED WITH NO ISSUES. AND DAUGHTER PRESENT FOR EDUCATION. ALL QUESTIONS ASKED AND ANSWERED.
--- NOTE | 2024-08-07 14:25 | NUR ---
Face sheet, H&P, progress notes, med list, PT/OT notes faxed to [facility] at wifes request.
[2024-08-07 15:57] VITALS: BP 141/62
--- NOTE | 2024-08-07 16:02 | NUR ---
BEFORE PATIENT WENT HOME GAVE HIM A SHOWER. PATIENT ALSO DID ORAL CARE AND WASHED HIS FACE. ALSO WASHED HIS HAIR.
[2024-08-07] MEDS ORDERED: LACTULOSE 20 GM/30 ML CUP PO SCH (21:00)
== END 2024-08-07 12:55 | disposition home or self-care (01) | DRG 442 ==
LOC: ED 10:26 → MS 13:42 → CCU 13:42 → MS 08-04 20:48
PROVIDERS: Emergency Medicine; Student in an Organized Health Care Education/Training Program; ADMIT Student in an Organized Health Care Education/Training Program; ATTEND Student in an Organized Health Care Education/Training Program
DX: K76.82 Hepatic encephalopathy (principal); E87.1 Hypo-osmolality and hyponatremia; F10.10 Alcohol abuse, uncomplicated; E11.9 Type 2 diabetes mellitus without complications; I10 Essential (primary) hypertension; M10.9 Gout, unspecified; E80.6 Other disorders of bilirubin metabolism; D69.59 Other secondary thrombocytopenia; Z79.84 Long term (current) use of oral hypoglycemic drugs; Z79.899 Other long term (current) drug therapy; K72.10 Chronic hepatic failure without coma; D64.9 Anemia, unspecified
CPT/HCPCS: 36415; 51701; 51798; 70450; 71045; 76705; 80048; 80053; 80307; 81003; 82140; 83550; 83735; 84100; 84443; 84484; 85025; 85610; 85730; 93005; 93010; 97110; 97116; 97163; 97165; 97530; 97535; 99285-25; A9270; G0480; J1650; J1815; J2060; J3411; J7030; J7070; J7121

== ENCOUNTER 2024-08-28 11:57 | Inpatient (IN) | payer MEDICARE, BC ==
[~2024-08-28] VITALS: Ht 180.3 cm; Wt 87.5 kg
[~2024-08-28 11:57] MED LIST changes: +GLIPIZIDE ER5 MG PO; +LACTULOSE20 GM/30 M PO
--- OUTSIDE RECORDS SUMMARY | 2024-08-28 12:06 | XMS ---
PreManage Notification: JCARLOS AMANDA Security Mercerizing Range Controller Events No recent Security Events currently on file CRITERIA MET - [facility] - 2 Visits in 30 Days CARE PROVIDERS EVONNE BAUMAN Physician Appellate [address] Clerk Current PHONE: [phone] Jayden has no Care Guidelines for this patient. [place] VISIT COUNT (12 MO.) 3 [facility] TOTAL 3 NOTE: Visits indicate total known visits. ED/C VISIT TRACKING (12 MO.) 08/28/2024 11:59 [facility] [place] TYPE: Emergency COMPLAINT: - CONFUSION 08/03/2024 10:27 [facility] [place] TYPE: Emergency COMPLAINT: - ALT MENTAL STATUS 12/31/2023 06:53 [facility] [place] TYPE: Emergency COMPLAINT: - BACK PAIN, WEAKNESS DIAGNOSES: - Essential (primary) hypertension - Other vermin exterminator (current) drug therapy - Overexertion from strenuous movement or load, initial encounter - Type 2 diabetes mellitus without complications - Weakness - Wedge compression fracture of T11-T12 vertebra, initial encounter for closed fracture INPATIENT VISIT TRACKING (12 MO.) 08/03/2024 13:[address] [facility] [place] TYPE: Medical Surgical COMPLAINT: - HEPATIC ENCEPHALOPATHY DIAGNOSES: - Alcohol abuse, uncomplicated - Alcohol abuse, uncomplicated - Anemia, unspecified - Anemia, unspecified - Chronic hepatic failure without coma - Chronic hepatic failure without coma - Essential (primary) hypertension - Essential (primary) hypertension - Gout, unspecified - Gout, unspecified - Hepatic encephalopathy - Hypo-osmolality and hyponatremia - Hypo-osmolality and hyponatremia - long term care phlebotomist (current) use of oral hypoglycemic drugs - detention (current) use of oral hypoglycemic drugs - Other disorders of bilirubin metabolism - Other disorders of bilirubin metabolism - Other vermin exterminator (current) drug therapy - Other penitentiary (current) drug therapy - Other secondary thrombocytopenia - Other secondary thrombocytopenia - Type 2 diabetes mellitus without complications - Type 2 diabetes mellitus without complications [email or web address]
[2024-08-28 12:24] LABS: BASOPHILS 0.5 % (0-2); EOSINOPHILS 1.5 % (0-6); HEMATOCRIT 29.8 % (35.0-50.0); HEMOGLOBIN 10.3 g/dL (12.0-18.0); LYMPHOCYTES 27.2 % (24-44); MCH 36.4 (27-36); MCHC 34.5 g/dl (30-36); MCV 105.3 fl (81-99); MONOCYTES 11.7 % (0-12); NEUTROPHILS 59.1 % (39-80); PLATELET COUNT 123 K/uL (140-440); RBC 2.83 M/ul (4.3-5.7); RDW 14.3 (10.5-15.0)
[2024-08-28 12:50] LABS: ALBUMIN 2.6 g/dL (3.4-5.0); ALBUMIN/GLOBULIN RATIO 0.59 (1.1-2.4); ALCOHOL, MEDICAL <3 ng/dL (<3); ALKALINE PHOSPHATASE 164 U/L (46-116); ALT (SGPT) 29 U/L (14-59); ANION GAP 15.3 (7-21); AST (SGOT) 40 U/L (15-37); BILIRUBIN, TOTAL 2.7 ng/dL (0.2-1.0); BUN/CREATININE RATIO 9.27 (6.0-28.6); CALCIUM 8.6 mg/dL (8.5-10.1); CARBON DIOXIDE 21 mmol/L (21-32); CHLORIDE 113 mmol/L (98-107); CREATININE, SERUM 1.51 mg/dL (0.70-1.30); GLOMERULAR FILTRATION RATE,EST 50 mL/min (>60); POTASSIUM 3.3 mmol/L (3.5-5.1); UREA NITROGEN 14 mg/dL (7-18)
[2024-08-28] MEDS ORDERED: LACTATED RINGER'S 1,000 ML IV SCH (15:15)
[2024-08-28] MEDS ORDERED: ondansetron HCL 4 MG/2 ML VIAL IV PRN (15:15)
[2024-08-28] MEDS ORDERED: LACTULOSE 20 GM/30 ML CUP PO SCH (15:30)
[2024-08-28] MEDS ORDERED: POTASSIUM CHLORIDE 10 MEQ TABCR PO ONE (15:30)
[2024-08-28 15:51] VITALS: BP 130/57
[2024-08-28 18:19] VITALS: BP 130/57
[2024-08-28 18:25] VITALS: BP 166/77
[2024-08-28 19:23] LABS: BILIRUBIN, URINE NEGATIVE (negative); BLOOD/HGB, URINE TRACE-I (Negative); KETONE, URINE NEGATIVE (Negative); LEUK ESTERASE, URINE SMALL (negative); NITRITE, URINE NEGATIVE (negative); PH, URINE 7.5 (5-7)
[2024-08-28 19:40] LABS: WHITE BLOOD CELLS, URINE 21-40 /HPF (0-5)
[2024-08-28 19:41] LABS: BACTERIA, URINE 2+ /hpf (negative); CASTS, URINE NONE SEEN \\lpf; CRYSTALS, URINE AMORPHOUS PHOSPH 1+ (0-1+); EPITHELIAL CELLS, URINE NONE SEEN /lpf (0-1+)
[2024-08-28 19:42] LABS: COLLECTION TYPE, URINE CLEAN CATCH; REFLEX CULTURE, URINE Yes (No)
[2024-08-28 19:44] LABS: AMPHETAMINES, URINE NEGATIVE (NEGATIVE); BARBITURATES, URINE NEGATIVE (NEGATIVE); BENZODIAZEPINE, URINE NEGATIVE (NEGATIVE); BUPRENORPHINE, URINE NEGATIVE (NEGATIVE); CANNABINOID, URINE NEGATIVE (NEGATIVE); COCAINE, URINE NEGATIVE (NEGATIVE); ECSTASY, URINE NEGATIVE (NEGATIVE); FENTANYL, URINE NEGATIVE (NEGATIVE); METHADONE, URINE NEGATIVE (NEGATIVE); OPIATES, URINE NEGATIVE (NEGATIVE); OXYCODONE, URINE NEGATIVE (NEGATIVE); PHENCYCLIDINE, URINE NEGATIVE (NEGATIVE)
[2024-08-28 20:56] VITALS: BP 144/72
[2024-08-28 21:24] VITALS: BP 144/72
[2024-08-28] MEDS ORDERED: CEFTRIAXONE/SODIUM CHLORIDE 2 GM/100 ML PIGGYBACK IV SCH (23:00)
[2024-08-29] VITALS (12 sets, daily range): BP systolic 113–158; BP diastolic 54–83
[2024-08-29 05:16] LABS: BASOPHILS 0.3 % (0-2); EOSINOPHILS 2.7 % (0-6); HEMATOCRIT 22.2 % (35.0-50.0); HEMOGLOBIN 7.8 g/dL (12.0-18.0); LYMPHOCYTES 31.6 % (24-44); MCH 36.5 (27-36); MCHC 35.1 g/dl (30-36); MCV 104.1 fl (81-99); MONOCYTES 14.1 % (0-12); NEUTROPHILS 51.3 % (39-80); PLATELET COUNT 87 K/uL (140-440); RBC 2.13 M/ul (4.3-5.7); RDW 14.3 (10.5-15.0)
[2024-08-29 05:37] LABS: ALBUMIN 1.9 g/dL (3.4-5.0); ALBUMIN/GLOBULIN RATIO 0.56 (1.1-2.4); ANION GAP 12.5 (7-21); BILIRUBIN, TOTAL 1.8 ng/dL (0.2-1.0); BUN/CREATININE RATIO 8.88 (6.0-28.6); CALCIUM 7.9 mg/dL (8.5-10.1); CREATININE, SERUM 1.35 mg/dL (0.70-1.30); POTASSIUM 3.5 mmol/L (3.5-5.1); PROTEIN, TOTAL 5.3 g/dL (6.4-8.2)
[2024-08-29 05:47] LABS: MAGNESIUM 1.8 mg/dL (1.8-2.4); PHOSPHORUS, INORGANIC 2.9 mg/dL (2.5-4.9)
[2024-08-29] MEDS ORDERED: PANTOPRAZOLE SODIUM 40 MG TABEC PO SCH (09:00)
[2024-08-29] MEDS ORDERED: LACTULOSE20 GM/30 M PO (09:17)
[2024-08-29] MEDS ORDERED: GLIPIZIDE ER5 MG PO (09:31)
[2024-08-29] MEDS ORDERED: PHARMACY RENAL DOSE ADJUSTMENT 1 DOSE MISC PO SCH (12:00)
[2024-08-29] MEDS ORDERED: LACTULOSE 20 GM/30 ML CUP PO ONE (16:00)
[2024-08-30 01:26] VITALS: BP 134/48
[2024-08-30 04:59] VITALS: BP 140/72
[2024-08-30 05:18] LABS: BASOPHILS 0.3 % (0-2); EOSINOPHILS 4.4 % (0-6); HEMATOCRIT 23.4 % (35.0-50.0); HEMOGLOBIN 8.1 g/dL (12.0-18.0); LYMPHOCYTES 31.1 % (24-44); MCH 36.4 (27-36); MCHC 34.6 g/dl (30-36); MCV 105.1 fl (81-99); MONOCYTES 14.1 % (0-12); NEUTROPHILS 50.1 % (39-80); PLATELET COUNT 90 K/uL (140-440); RBC 2.23 M/ul (4.3-5.7); RDW 14.4 (10.5-15.0)
[2024-08-30 05:22] VITALS: BP 129/75
[2024-08-30 05:28] LABS: ALBUMIN/GLOBULIN RATIO 0.56 (1.1-2.4); ANION GAP 11.4 (7-21); BILIRUBIN, TOTAL 1.7 ng/dL (0.2-1.0); BUN/CREATININE RATIO 7.35 (6.0-28.6); CALCIUM 8.1 mg/dL (8.5-10.1); CREATININE, SERUM 1.36 mg/dL (0.70-1.30); MAGNESIUM 1.8 mg/dL (1.8-2.4); POTASSIUM 3.4 mmol/L (3.5-5.1); PROTEIN, TOTAL 5.6 g/dL (6.4-8.2)
[2024-08-30 09:18] VITALS: BP 148/72
[2024-08-30 10:34] VITALS: BP 148/72
[2024-08-30] MEDS ORDERED: POTASSIUM CHLORIDE 10 MEQ TABCR PO ONE (11:15)
[2024-08-30] MEDS ORDERED: LACTULOSE20 GM/30 M PO (11:18)
[2024-08-30] MEDS ORDERED: CEFDINIR300 MG PO (11:19)
== END 2024-08-30 11:45 | disposition home or self-care (01) | DRG 442 ==
LOC: ED 11:57 → MS 15:23
PROVIDERS: Emergency Medicine; ADMIT Family Medicine; ATTEND Family Medicine
DX: K76.82 Hepatic encephalopathy (principal); N17.9 Acute kidney failure, unspecified; N39.0 Urinary tract infection, site not specified; K74.60 Unspecified cirrhosis of liver; D69.6 Thrombocytopenia, unspecified; E11.9 Type 2 diabetes mellitus without complications; I10 Essential (primary) hypertension; F10.90 Alcohol use, unspecified, uncomplicated; Z66 Do not resuscitate; E87.6 Hypokalemia; D64.9 Anemia, unspecified; E80.6 Other disorders of bilirubin metabolism; M10.9 Gout, unspecified; Z90.49 Acquired absence of other specified parts of digestive tract; Z98.890 Other specified postprocedural states; Z79.899 Other long term (current) drug therapy; Z86.73 Personal history of transient ischemic attack (TIA), and cerebral infarction without residual deficits; E86.0 Dehydration
CPT/HCPCS: 36415; 80053; 80307; 81001; 82140; 83735; 84100; 84484; 85025; 87077; 87088; 87186; 96365; 99285; A9270; G0378; G0480; J0696; J7121

== ENCOUNTER 2024-11-12 19:50 | Emergency (ER) | payer BC ==
[~2024-11-12] VITALS: Ht 180.3 cm; Wt 87.5 kg
[~2024-11-12 19:50] MED LIST changes: +CEFDINIR300 MG PO
[2024-11-12] MEDS ORDERED: XIFAXAN550 MG PO (19:59)
[2024-11-12] MEDS ORDERED: POTASSIUM CHLO10 ME1 PO (19:59)
[2024-11-12] MEDS ORDERED: FUROSEMIDE20 MG PO (19:59)
[2024-11-12] MEDS ORDERED: LACTULOSE10 GM/151 PO (20:00)
[2024-11-12] MEDS ORDERED: SPIRONOLACTONE100 MG NG (20:00)
[2024-11-12 20:24] LABS: BASOPHILS 0.2 % (0-2); EOSINOPHILS 1.6 % (0-6); HEMATOCRIT 27.5 % (35.0-50.0); HEMOGLOBIN 9.7 g/dL (12.0-18.0); LYMPHOCYTES 22.6 % (24-44); MCH 35.9 (27-36); MCHC 35.4 g/dl (30-36); MCV 101.5 fl (81-99); MONOCYTES 16.4 % (0-12); NEUTROPHILS 59.2 % (39-80); PLATELET COUNT 148 K/uL (140-440); RBC 2.71 M/ul (4.3-5.7); RDW 17.7 (10.5-15.0)
[2024-11-12 20:40] LABS: ALBUMIN 2.6 g/dL (3.4-5.0); ALBUMIN/GLOBULIN RATIO 0.52 (1.1-2.4); ALCOHOL, MEDICAL <3 ng/dL (<3); ALKALINE PHOSPHATASE 173 U/L (46-116); ALT (SGPT) 21 U/L (14-59); ANION GAP 13.7 (7-21); AST (SGOT) 55 U/L (15-37); BILIRUBIN, TOTAL 2.6 mg/dL (0.2-1.0); BUN/CREATININE RATIO 9.74 (6.0-28.6); CALCIUM 9.4 mg/dL (8.5-10.1); CARBON DIOXIDE 24 mmol/L (21-32); CHLORIDE 107 mmol/L (98-107); CREATININE, SERUM 1.54 mg/dL (0.70-1.30); GLOMERULAR FILTRATION RATE,EST 49 mL/min (>60); POTASSIUM 3.7 mmol/L (3.5-5.1); PROTEIN, TOTAL 7.6 g/dL (6.4-8.2); UREA NITROGEN 15 mg/dL (7-18)
[2024-11-12 20:58] LABS: PARTIAL THROMBOPLASTIN TIME 34.4 Sec (22.9-41.3)
[2024-11-12 20:59] LABS: INR 1.47 (0.80-1.30); PROTIME 17.8 Sec (11.2-14.2)
[2024-11-12] MEDS ORDERED: LACTULOSE 20 GM/30 ML CUP PO ONE (21:30)
[2024-11-12] MEDS ORDERED: LACTATED RINGER'S 1,000 ML IV ONE (21:30)
[2024-11-12 22:58] LABS: BILIRUBIN, URINE NEGATIVE (negative); BLOOD/HGB, URINE NEGATIVE (Negative); KETONE, URINE NEGATIVE (Negative); LEUK ESTERASE, URINE NEGATIVE (negative); NITRITE, URINE NEGATIVE (negative)
[2024-11-12 23:14] LABS: AMPHETAMINES, URINE NEGATIVE (NEGATIVE); BARBITURATES, URINE NEGATIVE (NEGATIVE); BENZODIAZEPINE, URINE NEGATIVE (NEGATIVE); BUPRENORPHINE, URINE NEGATIVE (NEGATIVE); COCAINE, URINE NEGATIVE (NEGATIVE); ECSTASY, URINE NEGATIVE (NEGATIVE); FENTANYL, URINE NEGATIVE (NEGATIVE); OPIATES, URINE NEGATIVE (NEGATIVE); OXYCODONE, URINE NEGATIVE (NEGATIVE); PHENCYCLIDINE, URINE NEGATIVE (NEGATIVE)
[2024-11-12 23:18] LABS: CANNABINOID, URINE NEGATIVE (NEGATIVE)
[2024-11-12 23:35] LABS: METHADONE, URINE NEGATIVE (NEGATIVE)
[2024-11-13 00:24] VITALS: BP 138/79
--- NOTE | 2024-11-15 21:27 | EKG ---
[facility] [address] [facility] [place] [address] Signed Normal sinus rhythm Cannot rule out Anterior infarct , age undetermined Prolonged QT Abnormal ECG When compared with ECG of 03-AUG-2024 10:48, No significant change was found Confirmed by Max Waggoner DO ([id number]) on 11/15/2024 9:27:05 PM Electronically Signed By: MAX WAGGOENR DO 11/15/242126 PATIENT NAME: TREASUREJCARLOS Electrocardiogram DATE OF : 55 PHYSICIAN: MAX WAGGONER DO REPORT #: [id number] REPORT IS CONFIDENTIAL AND NOT TO BE RELEASED WITHOUT AUTHORIZATION
== END 2024-11-13 00:26 | disposition home or self-care (01) ==
LOC: ED 19:50
PROVIDERS: Internal Medicine
DX: K76.82 Hepatic encephalopathy (principal); I10 Essential (primary) hypertension; E11.9 Type 2 diabetes mellitus without complications
CPT/HCPCS: 36415; 70450; 71045; 80053; 80307; 81003; 82140; 84484; 85025; 85610; 85730; 93005; 93010; 96360; 99285-25; G0480; J7121

== ENCOUNTER 2024-11-13 11:15 | Emergency (ER) | payer BC ==
[~2024-11-13] VITALS: Ht 180.3 cm; Wt 87.5 kg
[~2024-11-13 11:15] MED LIST changes: +FUROSEMIDE20 MG PO; +LACTULOSE10 GM/151 PO; +POTASSIUM CHLO10 ME1 PO; +SPIRONOLACTONE100 MG NG; +XIFAXAN550 MG PO
--- OUTSIDE RECORDS SUMMARY | 2024-11-13 11:21 | XMS ---
PreManage Notification: JCARLOS AMANDA Security Family Services Worker Events No recent Security Events currently on file CRITERIA MET - [facility] - 2 Visits in 30 Days CARE PROVIDERS EVONNE BAUMAN Physician Cupola Tapper Current PHONE: [phone] Jayden has no Care Guidelines for this patient. [place] VISIT COUNT (12 MO.) 5 [facility] TOTAL 5 NOTE: Visits indicate total known visits. ED/UCC VISIT TRACKING (12 MO.) 11/13/2024 11:15 [facility] [place] TYPE: Emergency COMPLAINT: - WEAKNESS 11/12/2024 19:50 [facility] [place] TYPE: Emergency COMPLAINT: - URINE PROBLEM 08/28/2024 11:59 [facility] [place] TYPE: Emergency COMPLAINT: - CONFUSION 08/03/2024 10:27 [facility] [place] TYPE: Emergency COMPLAINT: - ALT MENTAL STATUS 12/31/2023 06:53 [facility] [place] TYPE: Emergency COMPLAINT: - BACK PAIN, WEAKNESS DIAGNOSES: - Essential (primary) hypertension - Other dedicated intermodal truck driver (current) drug therapy - Overexertion from strenuous movement or load, initial encounter - Type 2 diabetes mellitus without complications - Weakness - Wedge compression fracture of T11-T12 vertebra, initial encounter for closed fracture INPATIENT VISIT TRACKING (12 MO.) 08/29/2024 13:52 [facility] [place] TYPE: Medical Surgical COMPLAINT: - HEPATIC ENCEPHALOPATHY DIAGNOSES: - Acquired absence of other specified parts of digestive tract - Acute kidney failure, unspecified - Alcohol use, unspecified, uncomplicated - Anemia, unspecified - Dehydration - Do not resuscitate - Essential (primary) hypertension - Gout, unspecified - Hepatic encephalopathy - Hypokalemia - Other disorders of bilirubin metabolism - Other correction (current) drug therapy - Other specified postprocedural states - Personal history of transient ischemic attack (TIA), and cerebral infarction without residual deficits - Thrombocytopenia, unspecified - Type 2 diabetes mellitus without complications - Unspecified cirrhosis of liver - Urinary tract infection, site not specified 08/03/2024 13:[address] [facility] [place] TYPE: Medical Surgical COMPLAINT: - HEPATIC ENCEPHALOPATHY DIAGNOSES: - Acute kidney failure, unspecified - Alcohol abuse, uncomplicated - Alcohol abuse, uncomplicated - Anemia, unspecified - Anemia, unspecified - Chronic hepatic failure without coma - Chronic hepatic failure without coma - Do not resuscitate - Essential (primary) hypertension - Essential (primary) hypertension - Gout, unspecified - Gout, unspecified - Hepatic encephalopathy - Hypo-osmolality and hyponatremia - Hypo-osmolality and hyponatremia - correction (current) use of oral hypoglycemic drugs - terminal gauger (current) use of oral hypoglycemic drugs - Other disorders of bilirubin metabolism - Other disorders of bilirubin metabolism - Other dedicated intermodal truck driver (current) drug therapy - Other dedicated intermodal truck driver (current) drug therapy - Other secondary thrombocytopenia - Other secondary thrombocytopenia - Type 2 diabetes mellitus without complications - Type 2 diabetes mellitus without complications - Unspecified cirrhosis of liver - Urinary tract infection, site not specified [email or web address]
[2024-11-13 13:51] LABS: BASOPHILS 0.1 % (0-2); EOSINOPHILS 0.8 % (0-6); HEMATOCRIT 27.9 % (35.0-50.0); HEMOGLOBIN 9.7 g/dL (12.0-18.0); LYMPHOCYTES 19.5 % (24-44); MCH 35.9 (27-36); MCHC 34.9 g/dl (30-36); MCV 102.8 fl (81-99); MONOCYTES 13.7 % (0-12); NEUTROPHILS 65.9 % (39-80); PLATELET COUNT 120 K/uL (140-440); RBC 2.71 M/ul (4.3-5.7); RDW 18.1 (10.5-15.0)
[2024-11-13 14:01] LABS: INR 1.64 (0.80-1.30); PROTIME 19.4 Sec (11.2-14.2)
[2024-11-13 14:07] LABS: ALBUMIN 2.6 g/dL (3.4-5.0); ALBUMIN/GLOBULIN RATIO 0.54 (1.1-2.4); ANION GAP 15.4 (7-21); BILIRUBIN, TOTAL 3.8 mg/dL (0.2-1.0); BUN/CREATININE RATIO 9.41 (6.0-28.6); CALCIUM 9.6 mg/dL (8.5-10.1); CREATININE, SERUM 1.7 mg/dL (0.70-1.30); POTASSIUM 3.4 mmol/L (3.5-5.1); PROTEIN, TOTAL 7.4 g/dL (6.4-8.2)
[2024-11-13 17:05] VITALS: BP 142/79
--- NOTE | 2024-11-15 21:27 | EKG ---
[facility] [address] [facility] [place], [place] [address] Signed Sinus tachycardia Inferior infarct , age undetermined Prolonged QT Abnormal ECG When compared with ECG of 12-NOV-2024 20:48, (Unconfirmed) QT has lengthened Confirmed by Max Waggoner DO ([id number]) on 11/15/2024 9:27:13 PM Electronically Signed By: MAX WAGGONER DO 11/15/242126 PATIENT NAME: TREASUREJCARLOS HAWK Electrocardiogram DATE OF : 55 PHYSICIAN: MAX WAGGONER DO REPORT #: [id number] REPORT IS CONFIDENTIAL AND NOT TO BE RELEASED WITHOUT AUTHORIZATION
== END 2024-11-13 16:55 | disposition home or self-care (01) ==
LOC: ED 11:15
PROVIDERS: Emergency Medicine
DX: K76.82 Hepatic encephalopathy (principal); K72.90 Hepatic failure, unspecified without coma; K74.60 Unspecified cirrhosis of liver; I10 Essential (primary) hypertension; E11.9 Type 2 diabetes mellitus without complications; M10.9 Gout, unspecified; Z86.73 Personal history of transient ischemic attack (TIA), and cerebral infarction without residual deficits; Z79.899 Other long term (current) drug therapy
CPT/HCPCS: 36415; 71045; 80053; 82140; 85025; 85610; 93005; 93010; 99285-25